=== PATIENT | male | born 1955 | race Two or more races ===

== ENCOUNTER 2018-04-18 06:35 | Emergency (ER) | payer OTHER ==
[~2018-04-18] VITALS: Ht 185.4 cm; Wt 83.9 kg
[2018-04-18 06:40] VITALS: BP 135/78
[2018-04-18] MEDS ORDERED: IBUPROFEN 800 MG TAB PO ONE (07:30)
[2018-04-18] MEDS ORDERED: METHOCARBAMOL 500 MG TAB PO ONE (07:30)
== END 2018-04-18 07:42 | disposition home or self-care (01) ==
LOC: ER 06:35
DX: S13.4XXA Sprain of ligaments of cervical spine, initial encounter (principal); V43.52XA Car driver injured in collision with other type car in traffic accident, initial encounter; Y93.89 Activity, other specified; Y99.8 Other external cause status; Y92.410 Unspecified street and highway as the place of occurrence of the external cause
CPT/HCPCS: 72040; 72070